=== PATIENT | male | born 1945 | race Caucasian/White ===

== ENCOUNTER 2017-10-17 05:36 | Day surgery (SDC) | payer OTHER ==
[~2017-10-17] VITALS: Ht 175.3 cm; Wt 97.0 kg
[2017-10-17] MEDS ORDERED: LACTATED RINGERS 1,000 ML IV SCH (06:49)
[2017-10-17] MEDS ORDERED: LIDOCAINE 1%, 2ML ONE (06:49)
[2017-10-17] MEDS ORDERED: METF500T27 PO (06:54)
[2017-10-17] MEDS ORDERED: GABA300C10 PO (06:54)
[2017-10-17] MEDS ORDERED: ATOR-2 PO (06:54)
[2017-10-17] MEDS ORDERED: PROP20TA PO (06:54)
[2017-10-17] MEDS ORDERED: LISI30TA4 PO (06:54)
[2017-10-17] MEDS ORDERED: MULT1TAB57 PO (06:54)
[2017-10-17 06:56] VITALS: BP 130/68
[2017-10-17] MEDS ORDERED: LIDOCAINE 1%, 2ML SQ PRN (07:00)
[2017-10-17] MEDS ORDERED: MIDAZOLAM 1 MG/ML, 2ML ONE (07:22)
[2017-10-17] MEDS ORDERED: FENTANYL PF 100 MCG/2ML ONE (07:22)
[2017-10-17] MEDS ORDERED: PROPOFOL 50 ML ONE (07:23)
[2017-10-17 07:38] LABS: ALANINE AMINOTRANSFERASE 30 U/L (12-78); ALBUMIN 3.6 g/dL (3.4-5.0); ANION GAP 6 mmol/L (5-15); CALCIUM 8.6 mg/dL (8.5-10.1); CHLORIDE 111 mmol/L (98-107); CREATININE 0.85 mg/dL (0.7-1.3)
[2017-10-17 07:40] LABS: ALKALINE PHOSPHATASE 56 U/L (45-117); BILIRUBIN,TOTAL 0.7 mg/dL (0.2-1.0); TOTAL PROTEIN 6.5 g/dL (6.4-8.2)
[2017-10-17] MEDS ORDERED: DEXAMETHASONE 4 MG/ML, 1ML ONE ×2 (07:54)
[2017-10-17] MEDS ORDERED: ONDANSETRON 2MG/ML, 2ML ONE ×2 (07:55)
[2017-10-17] MEDS ORDERED: hydrALAzine 20 MG/ML, 1ML IV PRN (08:30)
[2017-10-17] MEDS ORDERED: PROMETHAZINE 25 MG/ML, 1ML IV PRN (08:30)
[2017-10-17] MEDS ORDERED: LABETALOL 5MG/ML, 20ML IV PRN (08:30)
[2017-10-17] MEDS ORDERED: ACETAMINOPHEN 325 MG TABLET PO PRN (08:30)
[2017-10-17] MEDS ORDERED: HYDROmorphone 1 MG/ML, 1ML IV PRN (08:30)
[2017-10-17] MEDS ORDERED: MEPERIDINE/PF 25MG/0.5ML IVPush PRN (08:30)
[2017-10-17] MEDS ORDERED: OXYcodone 5 MG/5 ML ORAL.SOL UDC PO PRN (08:30)
[2017-10-17] MEDS ORDERED: FENTANYL PF 100 MCG/2ML IV PRN (08:30)
[2017-10-17] MEDS ORDERED: PHENYLEPHRINE 10 MG/ML ONE (15:23)
== END 2017-10-17 09:30 ==
LOC: OUT 05:36
PROVIDERS: ATTEND Internal Medicine
DX: C15.9 Malignant neoplasm of esophagus, unspecified (principal); K22.70 Barrett's esophagus without dysplasia
CPT/HCPCS: 36415; 43259; 80053; 82962; 93005; J1100; J2250; J2370; J2405; J2704; J3010; J3490; J7120